=== PATIENT | female | born 2000 | race Caucasian/White ===

== ENCOUNTER 2023-09-25 09:03 | Outpatient (CLI) | payer BC, SELFPAY | END 2023-09-25 09:04 | disposition home or self-care (01) | PROVIDERS: Visit Provider Obstetrics & Gynecology | DX: N92.0 Excessive and frequent menstruation with regular cycle (principal); N97.9 Female infertility, unspecified | CPT/HCPCS: 84146; 84443 ==

== ENCOUNTER 2025-08-01 13:44 | Outpatient (CLI) | payer OTHER, SELFPAY ==
--- NOTE | 2025-08-01 14:00 | CRLHL7_ITS ---
For Patients: As a result of the Century Cures Act, medical imaging exams and procedure reports are released immediately into your electronic medical record. You may view this report before your referring provider. If you have questions, please contact your health care provider. CLINICAL HISTORY: Chronic Pelvic Pain Associated with Menstruation. Dysmenorrhea with Menorrhagia. COMPARISON: None. TECHNIQUE: 2D watson-scale ultrasound. In addition, color Doppler and spectral Doppler analysis was performed of the pelvis using a transabdominal and transvaginal approach. Transvaginal imaging performed to better visualize the endometrial stripe and ovaries. FINDINGS: Uterus measures 9.3 x 3.5 x 4.5 cm. No uterine fibroids. Endometrium measures 5.7 millimeters. The right ovary measures 3.4 x 1.7 x 2.7 cm in size and the left ovary measures 2.9 x 1.4 x 2.4 cm. The ovaries demonstrate normal arterial and venous blood flow on color Doppler and spectral Doppler analysis. There are no suspicious fluid collections within the cul-de-sac. IMPRESSION: Normal ovaries. No evidence of torsion. No excess pelvic free fluid or adnexal mass. No uterine fibroid. Endometrial thickness 5.7 millimeters. Dictated by Mike Skinner MD @ 08/01/2025 4:31:43 PM (Electronically Signed)
== END 2025-08-01 13:45 | disposition home or self-care (01) ==
LOC: US 13:44
PROVIDERS: Visit Provider Obstetrics & Gynecology
DX: R10.2 Pelvic and perineal pain (principal); R93.89 Abnormal findings on diagnostic imaging of other specified body structures; N94.6 Dysmenorrhea, unspecified
CPT/HCPCS: 76830; 76856; 93976

== ENCOUNTER 2025-11-07 14:20 | Outpatient (CLI) | payer OTHER, SELFPAY | END 2025-11-07 14:21 | disposition home or self-care (01) | PROVIDERS: PCP Family Medicine; Visit Provider Family Medicine | DX: R53.83 Other fatigue (principal); Z13.6 Encounter for screening for cardiovascular disorders | CPT/HCPCS: 80053; 80061 ==